=== PATIENT | female | born 1980 | race African-American/Black ===

== ENCOUNTER 2021-08-24 11:55 | Inpatient (IN) | payer MEDICARE, MEDICAID ==
[~2021-08-24] VITALS: Ht 157.5 cm; Wt 59.0 kg
[2021-08-24] MEDS ORDERED: SUCCINYLCHOLINE CHLORIDE 20 MG/ML 10ML VIAL IV ONE ×2 (12:00→13:15)
[2021-08-24] MEDS ORDERED: SODIUM CHLORIDE 0.9% 1,000 ML IV ONE ×2 (12:00)
[2021-08-24] MEDS ORDERED: MIDAZOLAM DRIP 50 mg/50mL 50 ML IV ONE (12:01)
[2021-08-24] MEDS ORDERED: ETOMIDATE (2MG/ML) 20ML VIAL IV ONE ×4 (12:02→14:15)
[2021-08-24 12:40] LABS: Basophils # (auto) 0.1 10 ^3/uL (0-0.2); Eosinophils # (auto) 0.1 10 ^3/uL (0-0.8); Eosinophils % (auto) 0.8 % (0.0-7.0); Hemoglobin 11.9 g/dL (12.2-16.2); Red Cell Distribution Width 17.2 % (11.8-14.3)
[2021-08-24 12:41] LABS: Basophils % (auto) 0.6 % (0.0-2.0); Hematocrit 38.6 % (36.0-46.0); Lymphocytes # (auto) 5.5 10 ^3/uL (0.4-5.4); Lymphocytes % (auto) 47.8 % (10.0-50.0); Mean Corpuscular Hemoglobin 29.6 pg (28.0-32.0); Mean Corpuscular Hgb Conc. 30.9 g/dL (32.0-36.0); Monocytes # (auto) 1.2 10 ^3/uL (0-1.3); Monocytes % (auto) 10.3 % (0.0-12.0); Neutrophils # (auto) 4.7 10 ^3/uL (1.6-8.6); Neutrophils % (auto) 40.5 % (37.0-80.0); Nucleated Red Blood Cells % 0.1 %; Red Blood Cells 4.02 10^6/uL (4.0-5.20); White Blood Cell 11.6 10^3/uL (4.4-10.8)
[2021-08-24 12:57] LABS: INR 1.04 (0.9-1.15); Partial Thromboplastin Time 23.1 sec (23.6-33.0)
[2021-08-24 13:10] LABS: Albumin 4.1 g/dL (3.4-5.0); Calcium 8.8 mg/dL (8.5-10.1); Potassium 3.1 mmol/L (3.5-5.1)
[2021-08-24] MEDS ORDERED: MIDAZOLAM DRIP 50 mg/50mL 50 ML IV SCH (13:15)
[2021-08-24 13:18] LABS: BUN/Creatinine Ratio 5.3; Bilirubin, Total 0.3 mg/dL (0.2-1.0); Total Protein 8.5 g/dL (6.4-8.2)
[2021-08-24] MEDS ORDERED: PROPOFOL 100 ML IV ONE (13:22)
[2021-08-24] MEDS ORDERED: PROPOFOL 100 ML IV SCH (13:30)
[2021-08-24 13:45] LABS: Urine Bacteria NONE SEEN /hpf (None Seen); Urine Blood 1+ /uL (Negative); Urine Specific Gravity 1.014 (1.001-1.035); Urine WBC 51 /hpf (0 - 5)
[2021-08-24] MEDS ORDERED: NITROGLYCERIN 0.4 MG SL TAB SL PRN (16:00)
[2021-08-24] MEDS ORDERED: MORPHINE SULFATE INJECTION 2 MG/ML SYRG IV PRN (16:00)
[2021-08-24] MEDS ORDERED: POTASSIUM CHL 10MEQ/50ML 50 ML IV SCH (16:30)
[2021-08-24 17:12] LABS: BUN/Creatinine Ratio 7.5; Calcium 7.8 mg/dL (8.5-10.1); Magnesium 2.4 mg/dL (1.6-2.6); Potassium 3.7 mmol/L (3.5-5.1)
[2021-08-24 18:22] VITALS: BP 102/66
== END 2021-08-24 18:56 | disposition short-term general hospital (02) | DRG 208 ==
LOC: ER 11:55 → EDBD 11:55 → TELE 15:57
PROVIDERS: ADMIT Internal Medicine; ATTEND Internal Medicine
PROC: 5A1935Z Respiratory Ventilation, Less than 24 Consecutive Hours (ICD-10-PCS; principal; 2021-08-24)
PROC: 0BH17EZ Insertion of Endotracheal Airway into Trachea, Via Natural or Artificial Opening (ICD-10-PCS; 2021-08-24)
PROC: 06HM33Z Insertion of Infusion Device into Right Femoral Vein, Percutaneous Approach (ICD-10-PCS; 2021-08-24)
DX: J96.01 Acute respiratory failure with hypoxia (principal); G93.41 Metabolic encephalopathy; E87.2 Acidosis; N17.9 Acute kidney failure, unspecified; E87.6 Hypokalemia; G40.901 Epilepsy, unspecified, not intractable, with status epilepticus; Z20.822 Contact with and (suspected) exposure to COVID-19
CPT/HCPCS: 31500; 36415; 36556; 36600; 70450; 71045; 76801; 80048; 80053; 81001; 82805; 83605; 83735; 83880; 84484; 84702; 85025; 85610; 85730; 87070; 87077; 87186; 87205; 87426; 94002; 96365; 99291; G0378; J0330; J2250; J2704; J7060